=== PATIENT | male | born 1965 | race African-American/Black ===

== ENCOUNTER 2017-10-24 06:49 | Emergency (ER) | payer OTHER ==
[~2017-10-24] VITALS: Ht 170.2 cm; Wt 95.8 kg
[2017-10-24 06:51] VITALS: Ht 170.2 cm; Wt 95.8 kg
[2017-10-24] MEDS ORDERED: AZIT250T94 PO (07:09)
[2017-10-24] MEDS ORDERED: PRED20TA PO (07:09)
[2017-10-24] MEDS ORDERED: ALBU8.5H3 INH (07:09)
--- NOTE | 2017-10-24 07:13 | ERD ---
ER Documentation Chief Complaint Chief Complaint sore throat and cough x 1 week HPI This 52-year-old male complains of productive cough for last week. He recently got out of long-term and attributes it to sleeping acromial area on the floor. He has a history of asthma. He is out of his albuterol. Denies fevers, chest pain , vomiting, abdominal pain. ROS All systems reviewed and are negative except as per history of present illness. Medications Home Meds Active Scripts Azithromycin* (Zithromax*) 250 Mg Tablet, 250 MG PO .ZPACK DIRECTED, #6 TAB TAKE 500 MG (2 TABS) THE FIRST DAY THEN 250 MG (1 TAB) DAYS 2-5 Prov:SAMIA GELLER MD 10/24/17 Albuterol Sulfate* (Proair HFA*) 8.5 Gm Hfa.aer.ad, 2 PUFF INH Q4, #1 INHALER Prov:SAMIA GELLER MD 10/24/17 Prednisone* (Prednisone*) 20 Mg Tab, 40 MG PO DAILY for 4 Days, TAB Start October 25, 2017 Prov:SAMIA GELLER MD 10/24/17 Allergies Allergies: Coded Allergies: No Known Drug Allergies (Verified Allergy, Unknown, 10/24/17) PMhx/Soc Medical and Surgical Hx: pt denies Medical Hx, pt denies Surgical Hx History of Surgery: No Anesthesia Reaction: No Hx Neurological Disorder: No Hx Respiratory Disorders: No Hx Cardiac Disorders: No Hx Psychiatric Problems: No Hx Miscellaneous Medical Probl: No Hx Alcohol Use: No Hx Substance Use: No Hx Tobacco Use: No Physical Exam Vitals Vital Signs Date Time Temp Pulse Resp B/P Pulse Ox O2 Delivery O2 Flow Rate FiO2 10/24/17 06:51 98.6 88 18 147/109 99 Physical Exam Const: [] Alert, [id number]. Head: Atraumatic Eyes: Normal Conjunctiva ENT: Normal External Ears, Nose and Mouth. TMs and oropharynx normal. Neck: Full range of motion..~ No meningismus. Resp: Clear to auscultation bilaterally. Slight forced wheeze without rales or retractions appreciated. Cardio: Regular rate and rhythm, no murmurs Abd: Soft, non tender, non distended. Normal bowel sounds Skin: No petechiae or rashes Back: No midline or flank tenderness Ext: No cyanosis, or edema Neur: Awake and alert Psych: Normal Mood and Affect Results 24 hrs Current Medications Medications (Trade) Dose Ordered Sig/Carlos Route PRN Reason Start Time Stop Time Status Last Admin Dose Admin Prednisone (Prednisone) 40 mg ONCE ONCE PO 10/24/17 07:30 12 07:31 Azithromycin (Zithromax) 500 mg ONCE ONCE PO 10/24/17 07:30 10/24/17 07:31 Procedures/MDM Patient presents with a history of asthma and worsening URI symptoms over the last week. There is no evidence of hypoxemia or respiratory distress or chest pain or abdominal pain. He likely has bronchitis with wheezing. He will treated with Zithromax, prednisone and refills of pro-air, primary care follow- up and return precautions. The patient was stable with no new complaints during the ER course. Clinically, there is no current evidence to suggest meningitis, sepsis, acute abdomen, pneumonia, acute coronary syndrome, pulmonary embolism, or any other emergent condition appearing to require further evaluation or hospitalization. The patient should certainly return for any new or worsening symptoms per the aftercare instructions. They should otherwise follow-up with her primary care doctor for reevaluation this week. Departure Diagnosis: Primary Impression: URI, acute Condition: Stable Patient Instructions: Bronchitis With Wheezing (Adult) Additional Instructions: Recheck for new or worsening symptoms or primary care doctor SAMIA GELLER MD Oct 24, 2017 07:13
[2017-10-24] MEDS ORDERED: AZITHROMYCIN 250 MG TAB PO ONE (07:30)
[2017-10-24] MEDS ORDERED: predniSONE 20 MG TAB PO ONE (07:30)
== END 2017-10-24 07:35 | disposition home or self-care (01) ==
LOC: FTE 06:49
DX: J06.9 Acute upper respiratory infection, unspecified (principal)
CPT/HCPCS: J7512; Z7502; Z7610; 99284

== ENCOUNTER 2017-10-28 08:00 | Emergency (ER) | payer OTHER ==
[~2017-10-28] VITALS: Ht 177.8 cm; Wt 93.1 kg
[~2017-10-28 08:00] MED LIST: ALBU8.5H3 INH; AZIT250T94 PO; PRED20TA PO
[2017-10-28 08:07] VITALS: Ht 177.8 cm; Wt 93.1 kg
[2017-10-28] MEDS ORDERED: AZIT250T94 PO (08:30)
[2017-10-28] MEDS ORDERED: PRED20TA PO (08:30)
[2017-10-28] MEDS ORDERED: ALBU8.5H3 INH (08:32)
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
== END 2017-10-28 09:53 | disposition home or self-care (01) ==
LOC: FTE 08:00
DX: J06.9 Acute upper respiratory infection, unspecified (principal); I10 Essential (primary) hypertension; J44.9 Chronic obstructive pulmonary disease, unspecified; F17.210 Nicotine dependence, cigarettes, uncomplicated; Z76.0 Encounter for issue of repeat prescription
CPT/HCPCS: 99281

== ENCOUNTER 2017-11-28 17:16 | Emergency (ER) | END 2017-11-28 19:54 | disposition left against medical advice (07) ==

== ENCOUNTER 2018-05-11 13:10 | Emergency (ER) | END 2018-05-11 14:35 | disposition home or self-care (01) ==

== ENCOUNTER 2018-06-09 06:18 | Emergency (ER) | END 2018-06-09 07:00 | disposition home or self-care (01) ==

== ENCOUNTER 2018-06-12 17:40 | Emergency (ER) | END 2018-06-12 18:10 | disposition home or self-care (01) ==

== ENCOUNTER 2018-06-19 06:48 | Emergency (ER) | END 2018-06-19 07:50 | disposition home or self-care (01) ==